=== PATIENT | male | born 1985 | race Caucasian/White ===

== ENCOUNTER 2017-02-10 15:00 | Inpatient (IN) | payer OTHER ==
--- NOTE | ~2017-02-10 | HP ---
Unit #: [id number] #: [id number] Patient: TIMOTEO BALDERAS [id number] [place] [address] [id number] MR#: [id number] NAME: TIMOTEO BALDERAS. ROOM: P182 Age: 32 Sex: M Admission Date: 02/10/2017 : 1985 Attending Physician: Ute Westbrook M.D. Admitting Physician: Ute Westbrook M.D. Primary Care Physician: Primary Care Physician No HISTORY AND PHYSICAL HISTORY OF PRESENT ILLNESS Timoteo is a 32 year old admitted to [facility] because of his drug use. He shoots heroin. PAST MEDICAL HISTORY Long history of opioid abuse to include IV heroin. PAST SURGICAL HISTORY Nothing reported. ALLERGIES No known drug allergies. SOCIAL HISTORY Smokes 1 pack per day. Denies alcohol. Admits to a long history of opioid abuse to include IV heroin. FAMILY HISTORY Medically noncontributory. REVIEW OF SYSTEMS CONSTITUTIONAL: No fever or chills. HEENT: Denies any sore throat, ear pain or runny nose. CARDIOVASCULAR: Denies chest pain, irregular heart rhythm or palpitations. CHEST: Denies shortness of breath or cough. No hemoptysis. GASTROINTESTINAL: Denies nausea, vomiting, diarrhea or chronic constipation. ENDOCRINE: Denies history of increased thirst or urination. No recent significant weight loss or gain. GENITOURINARY: Denies dysuria, frequency, or hematuria. SKIN: Denies any rashes. HEMATOLOGIC: Denies history of increased bleeding or bruising. MUSCULOSKELETAL: Denies any hot, swollen joints. No generalized muscle pain. NEUROLOGIC: Denies problems with vision or speech. No frequent, severe headaches. No numbness, tingling or weakness in any extremities. Denies loss of bladder or bowel control. CURRENT MEDICATIONS Detox protocol. PHYSICAL EXAMINATION GENERAL: Alert, well-nourished, in no apparent distress. Unit #: [id number] #: [id number] Patient: TIMOTEO BALDERAS VITAL SIGNS: Blood pressure 100/62, heart rate 70, respirations 16, temperature 98.6. WEIGHT: 160. HEIGHT: 5 feet 11 inches. SKIN: Warm and dry without rash or lesion. HEENT: Normocephalic. TMs not viewed. Oral and nasal passages clear. Conjunctivae clear. PERRLA. EOMs intact. NECK: Supple without lymphadenopathy or thyromegaly. HEART: Regular rate and rhythm without murmur. LUNGS: Clear. ABDOMEN: Soft, nontender. : Not done. EXTREMITIES: No evidence of cyanosis, clubbing or edema. Moves all without focal deficit. NEUROLOGICAL: Grossly within normal limits. Cranial Nerves: II: Visual sanchez are intact. III, IV AND : Extraocular movements are intact. Pupils are equal, round and reactive to light. V: Facial sensation is grossly normal. VII: Facial movements and expression are normal. VIII: Auditory acuity grossly intact. IX, X: Uvula is midline. Phonation is normal. XI: Patient shrugs shoulders and turns head normally. XII: Tongue protrudes in the midline. Sensory and Motor Function: Sensory and motor sensation is grossly normal. Motor: moves all extremities well. Coordination: Gait is normal. Deep Tendon Reflexes: Intact. IMPRESSION Psychiatric admission. RECOMMENDATIONS PSYCHIATRIC: Per psychiatrist. MEDICAL: See no contraindication to participate in facility's activities. MEDICAL PROGNOSIS Good. MEDICAL CONDITION Stable. Dictated by... Loly Cobb P.A.-C. for Althea Mancera/cliff TD: 02/11/2017 18:53 JOB #: [id number] Unit #: [id number] #: [id number] Patient: TIMOTEO BALDERAS HISTORY AND PHYSICAL Page 1 of 1 X Loly Cobb X HISTORY AND PHYSICAL
--- NOTE | ~2017-02-10 | PN ---
Unit #: [id number] #: [id number] Patient: RIGOBERTO RAHMAN [id number] [facility] [address] [place] [address] [id number] I MR#: [id number] NAME: RIGOBERTO RAHMAN. ROOM: P182 Age: 32 Sex: M Admission Date: 02/10/2017 : 1985 Attending Physician: Ute Westbrook M.D. Admitting Physician: Ute Westbrook M.D. Primary Care Physician: Primary Care Physician Aby HOLLY PROGRESS NOTES DATE February 12, 2017 DISCUSSION Mr. Rahman is a 32-year-old white male, who was seen today and chart was reviewed and the case was discussed with the staff. He has been anxious, withdrawn, and seclusive to himself. Meanwhile, he has been cooperative with the treatment recommendations and he has been taking the medications and tolerating them fairly well with no reported side effects. MENTAL STATUS EXAMINATION Young white male, who was casually dressed with fair personal hygiene and appears to be in distress and discomfort. He was awake and alert on interaction with intact orientation. His mood is anxious with a congruent affect. He denies any suicidal or homicidal ideations. His insight and judgment remain slightly impaired. TREATMENT PLAN 1. We will continue him on his current medications and treatment protocol, and will monitor his response, and make further adjustments as needed. 2. We will continue to followup. Dictated by... Althea Diaz/lauryn TD: 02/12/2017 09:26 JOB #: [id number] Unit #: [id number] #: [id number] Patient: RIGOBERTO RAHMAN ELAYNE PROGRESS NOTES Page 1 of 1 X Ute Westbrook MD X PROGRESS NOTE
--- NOTE | ~2017-02-10 | PN ---
Unit #: [id number] #: [id number] Patient: RIGOBERTO RAHMAN [id number] [facility] [address] [place] [address] [id number] I MR#: [id number] NAME: RIGOBERTO RAHMAN. ROOM: P182 Age: 32 Sex: M Admission Date: 02/10/2017 : 1985 Attending Physician: Ute Westbrook M.D. Admitting Physician: Ute Westbrook M.D. Primary Care Physician: Primary Care Physician Aby HOLLY PROGRESS NOTES DATE February 15, 2017 DISCUSSION Mr. Rahman is a 32-year-old white male, who was seen today and chart was reviewed and the case was discussed with the staff. He has been doing fairly well but still has been anxious, withdrawn, and seclusive to himself. Meanwhile, he has been cooperative with the treatment recommendations and he has been taking the medications and tolerating them fairly well with no reported side effects. MENTAL STATUS EXAMINATION Young white male, who was casually dressed with fair personal hygiene and appears to be in no acute distress or discomfort. He was awake and alert with intact orientation. His mood was anxious with a congruent affect. He denies any suicidal or homicidal ideations. His insight and judgment remain slightly impaired. TREATMENT PLAN 1. We will continue him on his current medications and treatment protocol, and will monitor his response to the medications, and make further adjustments as needed. 2. We will continue to followup. Dictated by... Althea Diaz/lauryn TD: 02/16/2017 09:16 JOB #: [id number] Unit #: [id number] #: [id number] Patient: RIGOBERTO RAHMAN PEASOFIA PROGRESS NOTES Page 1 of 1 X Ute Westbrook MD PROGRESS NOTE
--- NOTE | ~2017-02-10 | DS ---
Unit #: [id number] #: [id number] [facility] [id number] [facility] [address] [place] [address] [id number] I MR#: [id number] NAME: RIGOBERTO RAHMAN. ROOM: P182 Age: 32 Sex: M Admission Date: 02/10/2017 : 1985 Discharge Date: 02/16/2017 Attending Physician: Ute Westbrook M.D. Primary Care Physician: Primary Care Physician No DISCHARGE SUMMARY IDENTIFYING DATA Mr. Rahman is a 32-year-old single white male, who is a resident of [place], [place], and was self-referred to the hospital on a voluntary basis. DISCHARGE DIAGNOSES Psychiatric: Major depressive disorder, recurrent, moderate, without psychotic features; opioid dependence, moderate and acute withdrawals; benzodiazepine dependence, moderate and acute withdrawals. Medical: Asthma. Stressors: Moderate psychosocial stressors. HISTORY OF PRESENT ILLNESS Please see initial psychiatric evaluation for details. PAST PSYCHIATRIC HISTORY Please see initial psychiatric evaluation for details. PAST MEDICAL HISTORY Please see initial psychiatric evaluation for details. HOSPITAL COURSE The patient was admitted to the adult chemical dependency unit at [facility] and was oriented to the hospital environment. Routine p.r.n. medications were initiated, and he was started back on his home medications and detox protocol was initiated and he was initially seen to be anxious, restless, withdrawn, and rather seclusive to himself and in distress or discomfort, though he was polite and pleasant and cooperative with treatment recommendations and was able to come out of the detox without any complications and was willing to continue treatment on an outpatient basis and as such, it was decided that he will be discharged home and will continue treatment on an outpatient basis. DISCHARGE MEDICATIONS None. DISCHARGE CONDITION Stable. PROGNOSIS Guarded. Dictated by... Unit #: [id number] #: [id number] Patient: RIGOBERTO RAHMAN Althea Diaz/ryan TD: 02/16/2017 06:38 JOB #: [id number] DISCHARGE SUMMARY Page 1 of 1 X Ute Westbrook MD DISCHARGE SUMMARY
--- NOTE | ~2017-02-10 | PN ---
Unit #: [id number] #: [id number] Patient: RIGOBERTO BALDERAS [id number] [facility] [address] [place] [address] [id number] I MR#: [id number] NAME: RIGOBERTO BALDERAS. ROOM: P182 Age: 32 Sex: M Admission Date: 02/10/2017 : 1985 Attending Physician: Ute Westbrook M.D. Admitting Physician: Althea Diaz PROGRESS NOTES DATE OF SERVICE: 02/14/2017 SUBJECTIVE Mr. Balderas is a 33-year-old white male with substance abuse and mood disorder, who was seen today and chart was reviewed, and case was discussed with the staff. He has been anxious, withdrawn, depressed, and rather seclusive to himself. Meanwhile, he has been cooperative with treatment recommendations and has been taking the medications and tolerating them fairly well with no reported side effects. MENTAL STATUS EXAMINATION Young white male who was casually dressed with fair personal hygiene, appears to be in distress and discomfort. He was awake and alert with impaired attention and concentration. His mood was anxious with a congruent affect. His speech was slow and restricted in content. His thought processes were disorganized with some looseness of associations. His insight and judgment remain significantly impaired. TREATMENT PLAN 1. We will continue him on his current medications and treatment protocol. We will monitor his response to the medications and make further adjustments as needed. 2. We will continue to follow up. Dictated by... Althea Diaz/ryan TD: 02/14/2017 16:15 JOB #: [id number] Unit #: [id number] #: [id number] Patient: RIGOBERTO BALDERAS FISHSOFIA PROGRESS NOTES Page 1 of 1 X Ute Westbrook MD PROGRESS NOTE
--- NOTE | ~2017-02-10 | PN ---
Unit #: [id number] #: [id number] Patient: RIGOBERTO RAHMAN [id number] [facility] [address] [place] [address] [id number] I MR#: [id number] NAME: RIGOBERTO RAHMAN. ROOM: P182 Age: 32 Sex: M Admission Date: 02/10/2017 : 1985 Attending Physician: Ute Westbrook M.D. Admitting Physician: Ute Westbrook M.D. Primary Care Physician: Primary Care Physician Aby HOLLY PROGRESS NOTES DATE February 13, 2017 DISCUSSION Mr. Rahman is a 32-year-old white male, with substance abuse and mood disorder, who was seen today and chart was reviewed and the case was discussed with the staff. He was noticed to be anxious, withdrawn, unkept, disheveled, and has not been functioning very much; however, he is trying to reach out when he was on the other unit as they both got together and trying to feed into each other's negativity and staff has been encouraged not to let them get into contact with each other very much so they can focus on their treatment plans. MENTAL STATUS EXAMINATION Young white male, who was casually dressed with a marginal personal hygiene and appears to be in slight distress and discomfort. He was awake and alert with impaired attention and concentration. His mood is anxious with a congruent affect. His speech is slow and restricted in content. He denies any suicidal or homicidal ideations. His insight and judgment remain significantly impaired. TREATMENT PLAN 1. We will continue him on his current medications and treatment protocol, and will monitor his response to the medications, and make further adjustments as needed. 2. We will continue to followup. Dictated by... Althea Diaz/lauryn TD: 02/13/2017 09:26 JOB #: [id number] Unit #: [id number] #: [id number] Patient: RIGOBERTO RAHMAN ELAYNE PROGRESS NOTES Page 1 of 1 X Ute Westbrook MD PROGRESS NOTE
--- NOTE | ~2017-02-10 | PA ---
Unit #: [id number] #: [id number] Patient: RIGOBERTO BALDERAS [id number] [facility] [address] [place] [address] [id number] I MR#: [id number] NAME: RIGOBERTO BALDERAS. ROOM: P182 Age: 32 Sex: M Admission Date: 02/10/2017 : 1985 Date of Assessment: 02/11/2017 Attending Physician: Ute Westbrook M.D. Admitting Physician: Ute Westbrook M.D. Primary Care Physician: Primary Care Physician No PSYCHIATRIC ASSESSMENT IDENTIFYING DATA Mr. Balderas is a 32-year-old, single, white male, who is a resident of [place], [place], and was self-referred to the hospital on a voluntary basis. CHIEF COMPLAINT "Detox drugs and suicidal thoughts." HISTORY OF PRESENT ILLNESS Mr. Balderas is a 32-year-old white male, who presented to the hospital stating that he has been struggling with depression and substance abuse issues and reports suicidal thoughts with a plan to jump off a bridge and has suicidal ideation with plan at this time and reports using heroin and Xanax and reports last use of heroin was last midnight and reports using 0.5 g at one time and using 2 to 3 g on a daily basis and using IV heroin and reports using Xanax at midnight last night and reports using 4 mg of Xanax and reports daily use of 12 mg of Xanax and as such, was seen to be decompensating and does report increasing depression, anxiety, irritability, restlessness, feelings of hopelessness and helplessness, and stated "I don't know if it is drug use." He reports suicidal ideations and reports he has attempted suicide in the past as well. SUBSTANCE ABUSE HISTORY The patient reports history of alcohol, cannabis, cocaine, opioids, and benzodiazepine abuse, and currently, it appears that opioids and benzodiazepine have been his drug of choice. PAST PSYCHIATRIC HISTORY The patient has not had any prior inpatient or outpatient psychiatric treatment. Review of the medical records indicate that currently he is not active in any treatment program, is not seeing a psychiatrist, not taking any psychotropic medications. PAST MEDICAL HISTORY Asthma. ALLERGIES No known medication allergies. CURRENT MEDICATIONS None. PERSONAL AND SOCIAL HISTORY Unit #: [id number] #: [id number] Patient: RIGOBERTO BALDERAS A 32-year-old white male, who reports that he is single, unemployed, and lives with a friend and has poor social support system. MENTAL STATUS EXAMINATION Young white male, who was casually dressed with fair personal hygiene, appears to be in no acute distress or discomfort. He was awake and alert on interaction with intact orientation to time, place, and person. His mood was anxious and depressed with a congruent affect. His speech was slow and restricted in content. He reports having suicidal ideations, but denies any homicidal ideations, and also denies any auditory or visual hallucinations. His insight and judgment remain significantly impaired. DIAGNOSTIC IMPRESSION Psychiatric: Major depressive disorder, recurrent, moderate, without psychotic features; opioid dependence, moderate and acute withdrawals; benzodiazepine dependence, moderate and acute withdrawals. Medical: Asthma. Stressors: Moderate psychosocial stressors. TREATMENT PLAN 1. The patient has presented with a history of substance abuse and mood disorder, and has been decompensating and will need inpatient hospitalization for safety and stabilization. We will start him back on his home medications. We will adjust the medications and monitor response. 2. Supportive therapy was provided to the patient. 3. Safe, structured, and nourishing environment will be reported. ESTIMATED LENGTH OF STAY 5 to 7 days. ABILITY TO HELP SELF Limited. WILLINGNESS TO HELP SELF The patient appears to be willing to help self. STRENGTHS 1. Communicative. 2. Cooperative. PROBLEMS 1. Chronic dysphoric symptoms. 2. Chronic chemical dependency. 3. Poor social support system. DISCHARGE CRITERIA This will be contingent upon the patient's ability to go through detox without having any significant withdrawal symptoms as well as his ability to stay safe to himself, particularly after discharge from the hospital. Dictated by... Althea Diaz/bryannal Unit #: [id number] #: [id number] Patient: RIGOBERTO BALDERAS TD: 02/11/2017 06:49 JOB #: [id number] PSYCHIATRIC ASSESSMENT Page 1 of 1 X Ute Westbrook MD PSYCHIATRIC ASSESSMENT
[2017-02-11 09:47] LABS: URINE APPEARANCE CLEAR; URINE BILIRUBIN NEG (NEG); URINE BLOOD NEG (NEG); URINE COLOR YELLOW; URINE GLUCOSE NEG (NEG); URINE KETONE NEG (NEG); URINE LEUKOCYTE ESTERASE NEG (NEG); URINE NITRATE NEG (NEG); URINE PH 7.5 (5-8); URINE PROTEIN NEG (NEG); URINE SPECIFIC GRAVITY 1.009 (1.003-1.035)
[2017-02-11 09:51] LABS: BASOPHIL# 0.1 X10e3 (0-0.3); BASOPHIL% 0.9 % (0-2.5); EOSINOPHIL# 0.2 X10e3 (0-0.7); EOSINOPHIL% 3.8 % (0.0-7.0); HEMATOCRIT 44.1 % (38.0-50.0); HEMOGLOBIN 14.6 gm/dL (13.0-16.0); LYMPHOCYTE# 2.7 X10e3 (1.0-3.5); LYMPHOCYTE% 46.8 % (17.0-45.0); MEAN CELL VOLUME 90.3 FL (83-96); MEAN CORPUSCULAR HGB CONC 33.2 g/dL (30-36); MONOCYTE# 0.7 X10e3 (0-1.0); MONOCYTE% 11.7 % (3.0-12.0); NEUTROPHIL# 2.1 X10e3 (1.5-7.1); NEUTROPHIL% 36.8 % (40-75); PLATELET COUNT 250 X10e3 (140-420); RED BLOOD COUNT 4.88 X10e (3.90-5.60); RED CELL DISTRIBUTION WIDTH 13.3 % (11.0-15.5); WHITE BLOOD COUNT 5.7 X10e3 (4.0-10.5)
[2017-02-11 09:55] LABS: DIFF IND NO
[2017-02-11 10:00] LABS: ALBUMIN SERUM 3.4 g/dL (3.5-5.0); BILIRUBIN,TOTAL 0.4 mg/dL (0.2-2.0); BUN/CREATININE RATIO 17.14; CALCIUM SERUM 8.9 mg/dL (8.4-10.2); CREATININE SERUM 0.7 mg/dL (0.6-1.4); GLOM FILT RATE Estimated 123.2 mL/min (>60); POTASSIUM 4.7 mmol/L (3.5-5.1); PROTEIN TOTAL SERUM 6.1 g/dL (6.0-8.3)
[2017-02-11 10:33] LABS: AMPHETAMINE NEG (NEG); BARBITURATES NEG (NEG); BENZODIAZEPINES NEG (NEG); COCAINE NEG (NEG); MARIJUANA NEG (NEG); OPIATES POS (NEG); TRICYCLIC ANTIDEPRESSANTS NEG (NEG); U METHADONE NEG (NEG)
== END 2017-02-16 08:50 | DRG 885 ==
LOC: P1E 19:01 → P2S 19:01 → P1E 22:12
PROVIDERS: Psychiatry & Neurology Psychiatry
PROC: HZ2ZZZZ Detoxification Services for Substance Abuse Treatment (ICD-10-PCS; principal; 2017-02-10)
DX: F33.1 Major depressive disorder, recurrent, moderate (principal); R45.851 Suicidal ideations; F11.23 Opioid dependence with withdrawal; F13.230 Sedative, hypnotic or anxiolytic dependence with withdrawal, uncomplicated; J45.909 Unspecified asthma, uncomplicated; F17.210 Nicotine dependence, cigarettes, uncomplicated
CPT/HCPCS: 80053; 80307; 81003; 85025; 86592

== ENCOUNTER 2017-02-27 08:00 | Inpatient (IN) | payer OTHER ==
[~2017-02-27] VITALS: Ht 185.4 cm; Wt 71.2 kg
--- NOTE | ~2017-02-27 | PN ---
Unit #: [id number] #: [id number] Patient: RIGOBERTO RAHMAN [id number] [facility] [address] [place] [address] [id number] MR#: [id number] NAME: RIGOBERTO RAHMAN. ROOM: P178 Age: 32 Sex: M Admission Date: 02/27/2017 : 1985 Attending Physician: Ute Westbrook M.D. Admitting Physician: Ute Westbrook M.D. Primary Care Physician: Primary Care Physician Aby ALVAREZ NOTES DATE March 02, 2017 DISCUSSION Mr. Rahman is a 32-year-old white male, who was seen today and chart was reviewed and the case was discussed with the staff. He has been anxious, withdrawn, and seclusive to himself. Meanwhile, he has been cooperative with the treatment recommendations and he has been taking the medications and tolerating them fairly well with no reported side effects. MENTAL STATUS EXAMINATION Young white male, who was casually dressed with fair personal hygiene and appears to be in no acute distress or discomfort. He was awake and alert on interaction with intact orientation. His mood is anxious with a congruent affect. He denies any suicidal or homicidal ideations. His insight and judgment remain slightly impaired. TREATMENT PLAN 1. We will continue him on his current medications and treatment protocol, and will monitor his response to the medications, and make further adjustments as needed. 2. We will continue to followup. Dictated by... Althea Diaz/lauryn TD: 03/03/2017 07:32 JOB #: [id number] Unit #: [id number] #: [id number] Patient: RIGOBERTO RAHMAN ELAYNE PROGRESS NOTES Page 1 of 1 X Ute Westbrook MD PROGRESS NOTE
--- NOTE | ~2017-02-27 | PA ---
Unit #: [id number] #: [id number] Patient: [facility] [id number] [facility] [address] [place] [address] [id number] MR#: [id number] NAME: RIGOBERTO BALDERAS. ROOM: P178 Age: 32 Sex: M Admission Date: 02/27/2017 : 1985 Date of Assessment: Attending Physician: Ute Westbrook M.D. Admitting Physician: Ute Westbrook M.D. Primary Care Physician: Primary Care Physician No PSYCHIATRIC ASSESSMENT JOB NOTE: DATE OF SERVICE 02/27/2017. IDENTIFYING DATA Mr. Samuels is a 32-year-old, single, white male who is a resident of [place], [place], and was just recently discharged from my care and was self-referred back to the hospital. CHIEF COMPLAINT "I relapsed. I feel suicidal". HISTORY OF PRESENT ILLNESS Mr. Samuels is a 32-year-old white male with mood disorder and substance abuse, who was recently discharged from my care and brought himself back stating that he relapsed soon afterwards as he stated "I'm still using drugs and I'm depressed and suicidal. I feel suicidal when I started using drugs and never really inpatient here a couple of weeks ago and I have been feeling this way for a couple of days after inpatient couple of weeks ago, I was supposed to go to [place] for rehab, but did not stay here, and constitution party for couple of days, but should just went right away. He now reports increasing depression, anxiety, irritability, restlessness, feelings of hopelessness, and helplessness, and suicidal ideations with intent and plan and as such, recommendation for inpatient level of care for safety and stabilization was made and the patient was transferred to us. SUBSTANCE ABUSE HISTORY The patient reports history of alcohol, cannabis, cocaine, and opioid abuse and dependence, currently opioids has been his drug of choice. He reports that he has been using 2 to 3 g of IV heroin on daily basis with the last use being last night. PAST PSYCHIATRIC HISTORY The patient [facility] and review of the medical records indicate currently he is not active in any treatment program, is not seeing a psychiatrist, and is not taking any psychotropic medications. PAST MEDICAL HISTORY Asthma. Unit #: [id number] #: [id number] Patient: RIGOBERTO BALDERAS ALLERGIES No known medication allergies. PERSONAL AND SOCIAL HISTORY A 32-year-old white male who reports that he is single, unemployed, and lives with a friend and has poor social support system. MENTAL STATUS EXAMINATION Young white male, who was casually dressed with fair personal hygiene, appears to be in no acute distress or discomfort. He was awake and alert on interaction with intact orientation to time, place, and person. His mood was anxious and depressed with a congruent affect. His speech was slow and restricted in content. His thought processes were disorganized with some looseness of associations and suicidal ideations. His insight and judgment remain significantly impaired. DIAGNOSTIC IMPRESSION Psychiatric: Major depressive disorder, recurrent, moderate, without psychotic features; opioid dependence, moderate and acute withdrawal. Medical: None. Stressors: Moderate psychosocial stressors. TREATMENT PLAN 1. The patient has presented with history of substance abuse and mood disorder, and has been decompensating and will need inpatient hospitalization for detoxification, safety, and stabilization. We will start him back on his home medication. Detox protocol will be initiated as well. 2. Supportive therapy was provided to the patient. 3. Safe, structured, and nourishing environment will be provided. ESTIMATED LENGTH OF STAY 4 to 5 days. ABILITY TO HELP SELF Limited. WILLINGNESS TO HELP SELF The patient appears to be willing to help self. STRENGTHS 1. Communicative. 2. Cooperative. PROBLEMS 1. Chronic dysphoric symptoms. 2. Chronic chemical dependency. 3. Poor social support system. DISCHARGE CRITERIA This will be contingent upon the patient's ability to show resolution of his depression and anxiety and his ability to stay safe to himself, particularly after discharge from the hospital. Dictated by... Ute Westbrook M.D. Unit #: [id number] #: [id number] Patient: RIGOBERTO BALDERAS IAA/modl TD: 02/28/2017 19:19 JOB #: [id number] PSYCHIATRIC ASSESSMENT Page 1 of 1 X Ute Westbrook MD X PSYCHIATRIC ASSESSMENT
--- NOTE | ~2017-02-27 | PN ---
Unit #: [id number] #: [id number] Patient: RIGOBERTO BALDERAS [id number] [facility] [address] [place] [address] [id number] MR#: [id number] NAME: RIGOBERTO BALDERAS. ROOM: P178 Age: 32 Sex: M Admission Date: 02/27/2017 : 1985 Attending Physician: Ute Westbrook M.D. Admitting Physician: Ute Westbrook M.D. Primary Care Physician: Primary Care Physician Aby HOLLY PROGRESS NOTES DATE 03/01/2017 DISCUSSION Mr. Flores is a 32-year-old, white male who was seen today and chart was reviewed and case was discussed with the staff. He has been anxious, withdrawn and rather seclusive to himself. Meanwhile, he has been cooperative with the treatment recommendations. He has been taking the medication and tolerating them fairly well with no reported side effects. MENTAL STATUS EXAM Young white male who was casually dressed with fair personal hygiene, appears to be in no acute distress or discomfort. He was awake and alert on interaction with intact orientation. His mood was anxious with congruent affect. His speech was slow and restricted in content. He denies any suicidal or homicidal ideation. Also, denies any auditory or visual hallucinations. His insight and judgement remains slightly impaired. TREATMENT PLAN 1. We will continue him on his current medications and treatment protocol. We will monitor his response to the medication and make further adjustments as needed. 2. We will continue to follow up. Dictated by... Althea Diaz/afshan TD: 03/03/2017 00:39 JOB #: [id number] Unit #: [id number] #: [id number] Patient: RIGOBERTO BALDERAS ELAYNE PROGRESS NOTES Page 1 of 1 X Ute Westbrook MD PROGRESS NOTE
--- NOTE | ~2017-02-27 | PN ---
Unit #: [id number] #: [id number] Patient: RIGOBERTO RAHMAN [id number] [facility] [address] [place] [address] [id number] MR#: [id number] NAME: RIGOBERTO RAHMAN. ROOM: P178 Age: 32 Sex: M Admission Date: 02/27/2017 : 1985 Attending Physician: Ute Westbrook M.D. Admitting Physician: Ute Westbrook M.D. Primary Care Physician: Primary Care Physician Aby ALVAREZ NOTES DATE 02/28/2017 DISCUSSION Mr. Rahman is a 32-year-old, white male with substance abuse and mood was seen today and chart was reviewed and case was discussed with the staff. He has been anxious, withdrawn in acute distress and discomfort as he was trying to detox and was seen to be rather unkempt, disheveled and seclusive to himself. Meanwhile, he has been taking medications and tolerating them fairly well with no reported side effects. MENTAL STATUS EXAM Young white male who was casually dressed with fair personal hygiene, appears to be in no acute distress or discomfort. He was awake and alert on interaction with intact orientation. His mood was anxious with congruent affect. His speech was slow and goal directed. He denies any suicidal or homicidal ideation. Also, denies any auditory or visual hallucinations. His insight and judgement remains slightly impaired. TREATMENT PLAN 1. We will continue him on his current medications and treatment protocol. We will monitor his response to the medication and make further adjustments as needed. 2. We will continue to follow up. Dictated by... Althea Diaz/afshan TD: 03/02/2017 04:49 JOB #: [id number] Unit #: [id number] #: [id number] Patient: RIGOBERTO RAHMAN ELAYNE PROGRESS NOTES Page 1 of 1 X Ute Westbrook MD PROGRESS NOTE
--- NOTE | ~2017-02-27 | HP ---
Unit #: [id number] #: [id number] Patient: RIGOBERTO BALDERAS [id number] [place] [address] [id number] MR#: [id number] NAME: RIGOBERTO BALDERAS ROOM: P178 Age: 32 Sex: M Admission Date: 02/27/2017 : 1985 Attending Physician: Ute Westbrook M.D. Admitting Physician: Ute Westbrook M.D. Primary Care Physician: Primary Care Physician No HISTORY AND PHYSICAL Fabio is a 32-year-old male admitted on 02/27/2017 to [facility] for detox from heroin. He was recently admitted for the same on 02/10/2017. I reviewed the history and physical from that admission and there are no changes. Dictated by... Clayton Nickerson TD: 03/02/2017 04:13 JOB #: [id number] HISTORY AND PHYSICAL Page 1 of 1 X ANTONIO JEFFERS APRN HISTORY AND PHYSICAL
--- NOTE | ~2017-02-27 | DS ---
Unit #: [id number] #: [id number] Patient: RIGOBERTO BALDERAS [id number] [facility] [address] [place] [address] [id number] MR#: [id number] NAME: RIGOBERTO BALDERAS. ROOM: P178 Age: 32 Sex: M Admission Date: 02/27/2017 : 1985 Discharge Date: 03/03/2017 Attending Physician: Ute Westbrook M.D. Primary Care Physician: Primary Care Physician No DISCHARGE SUMMARY IDENTIFYING DATA Mr. Balderas is 32-year-old single white male, who is a resident of [place], [place], and was recently discharged from my care and was self-referred back to the hospital. DISCHARGE DIAGNOSES Psychiatric: Major depressive disorder, recurrent, moderate, without psychotic features and opioid dependence, moderate, in acute withdrawals. Medical: None. Stressors: Mild psychosocial stressors. HISTORY OF PRESENT ILLNESS Please see initial psychiatric evaluation for details. PAST PSYCHIATRIC HISTORY Please see initial psychiatric evaluation for details. PAST MEDICAL HISTORY Please see initial psychiatric evaluation for details. HOSPITAL COURSE [facility] and was oriented to the hospital environment. Routine p.r.n. medications were initiated, and he was started on the detox protocol and was closely monitored. He was taking the medications regularly and was tolerating them fairly well and was able to come out of the detox without any complications and was insisting on wanting to go stating that his father is in hospice and he needs to be with his father, though this information could not be verified. The patient was not meeting criteria for involuntary psychiatric hospitalization and as such, it was decided that he will be discharged home and will continue treatment on an outpatient basis. DISCHARGE MEDICATIONS None. DISCHARGE CONDITION Stable. PROGNOSIS Fair. Dictated by... Unit #: [id number] #: [id number] Patient: RIGOBERTO BALDERAS Althea Diaz/ryan TD: 03/03/2017 19:06 JOB #: [id number] DISCHARGE SUMMARY Page 1 of 1 X Ute Westbrook MD X DISCHARGE SUMMARY
[2017-02-28 11:25] LABS: BASOPHIL% 0.4 % (0-2.5); EOSINOPHIL# 0.1 X10e3 (0-0.7); EOSINOPHIL% 1.2 % (0.0-7.0); HEMATOCRIT 42.4 % (38.0-50.0); HEMOGLOBIN 14.1 gm/dL (13.0-16.0); LYMPHOCYTE# 1.4 X10e3 (1.0-3.5); LYMPHOCYTE% 24.6 % (17.0-45.0); MEAN CELL VOLUME 89.6 FL (83-96); MEAN CORPUSCULAR HEMOGLOBIN 29.8 PG (28-34); MEAN CORPUSCULAR HGB CONC 33.3 g/dL (30-36); MEAN PLATELET VOLUME 9.1 FL (6.5-11.5); MONOCYTE# 0.5 X10e3 (0-1.0); NEUTROPHIL# 3.6 X10e3 (1.5-7.1); NEUTROPHIL% 64.8 % (40-75); PLATELET COUNT 292 X10e3 (140-420); RED BLOOD COUNT 4.73 X10e (3.90-5.60); RED CELL DISTRIBUTION WIDTH 13.4 % (11.0-15.5); WHITE BLOOD COUNT 5.5 X10e3 (4.0-10.5)
[2017-02-28 11:33] LABS: DIFF IND NO
[2017-02-28 13:44] LABS: ALBUMIN SERUM 3.5 g/dL (3.5-5.0); BILIRUBIN,TOTAL 0.3 mg/dL (0.2-2.0); BUN/CREATININE RATIO 17.14; CALCIUM SERUM 8.9 mg/dL (8.4-10.2); CREATININE SERUM 0.7 mg/dL (0.6-1.4); GLOM FILT RATE Estimated 123.2 mL/min (>60); POTASSIUM 4.2 mmol/L (3.5-5.1); PROTEIN TOTAL SERUM 6.2 g/dL (6.0-8.3)
[2017-03-01 12:20] LABS: URINE APPEARANCE CLEAR; URINE BILIRUBIN NEG (NEG); URINE BLOOD NEG (NEG); URINE COLOR YELLOW; URINE GLUCOSE NEG (NEG); URINE KETONE NEG (NEG); URINE LEUKOCYTE ESTERASE NEG (NEG); URINE NITRATE NEG (NEG); URINE PH 6.5 (5-8); URINE PROTEIN NEG (NEG); URINE UROBILINOGEN 0.2 MG/DL (NEG)
[2017-03-01 12:54] LABS: AMPHETAMINE NEG (NEG); BARBITURATES NEG (NEG); BENZODIAZEPINES NEG (NEG); COCAINE NEG (NEG); MARIJUANA NEG (NEG); OPIATES POS (NEG); TRICYCLIC ANTIDEPRESSANTS NEG (NEG); U METHADONE NEG (NEG)
== END 2017-03-03 09:30 | disposition home or self-care (01) | DRG 885 ==
LOC: P1E 11:40
PROVIDERS: Psychiatry & Neurology Psychiatry
PROC: HZ2ZZZZ Detoxification Services for Substance Abuse Treatment (ICD-10-PCS; principal; 2017-02-27)
DX: F33.1 Major depressive disorder, recurrent, moderate (principal); F11.23 Opioid dependence with withdrawal; F17.210 Nicotine dependence, cigarettes, uncomplicated; J45.909 Unspecified asthma, uncomplicated
CPT/HCPCS: 80053; 80307; 81003; 85025; 86592